=== PATIENT | female | born 1980 | race Caucasian/White ===

== ENCOUNTER 2016-07-24 00:25 | Inpatient (IN) ==
[2016-07-24] MEDS ORDERED: ASPIRIN 325 MG TABLET PO STA (01:18)
[2016-07-24] MEDS ORDERED: SODIUM CHLORIDE 0.9% 1,000 ML IV STA (01:18)
[2016-07-24] MEDS ORDERED: ONDANSETRON 4 MG/2 ML VIAL IV STA (01:18)
[2016-07-24] MEDS ORDERED: LORazepam 2 MG/1 ML VIAL IV STA (01:19)
[2016-07-24] MEDS ORDERED: HYDROmorphone 2 MG/1 ML VIAL IV STA (01:20)
--- NOTE | 2016-07-24 01:22 | EKG Report ---
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
[2016-07-24] MEDS ORDERED: ASPIRIN 325 MG TABLET ONE (01:39)
[2016-07-24] MEDS ORDERED: HYDROmorphone 2 MG/1 ML VIAL ONE (01:39)
[2016-07-24] MEDS ORDERED: ONDANSETRON 4 MG/2 ML VIAL ONE (01:39)
[2016-07-24] MEDS ORDERED: LORazepam 2 MG/1 ML VIAL ONE (01:40)
[2016-07-24 01:51] LABS: Basophils # 0.1 10*3/uL (0.0-0.2); Basophils % 0.2 % (0.0-0.8); Hematocrit 34.7 VOL% (35.7-47.0); Hemoglobin 11.8 GM/DL (12.0-16.0); Immature Granulocytes % 3.4 %; Lymphocytes # 2.6 10*3/uL (1.4-4.0); Lymphocytes % 7.1 % (21.3-54.2); Mean Corpuscular Hemoglobin 30 PG (27-34); Mean Corpuscular Volume 87.4 FL (87-102); Mean Platelet Volume 10.6 FL (9.6-12.0); Monocytes # 1.9 10*3/uL (0.11-0.8); Monocytes % 5.3 % (1.7-12.7); Platelet Count 300 10*3/uL (130-400); Red Blood Count 3.97 10*6/uL (3.8-5.5); Red Cell Distribution Width 14.4 % (9.3-17.3); White Blood Count 35.7 10*3/uL (4.5-13.71)
[2016-07-24 02:01] LABS: Albumin 3.6 G/DL (3.4-5.0); Bilirubin,Total 0.9 MG/DL (0.2-1.0); Calcium 8.5 MG/DL (8.5-10.1); Magnesium 1.6 MG/DL (1.8-2.4); Osmolality,Calculated 276.5 MOS/KG (273-304); Potassium 3.4 MMOL/L (3.5-5.1)
[2016-07-24 02:09] LABS: Apearance,Urine CLOUDY (Clear); Bacteria,Urine Moderate /HPF (Few); Bilirubin,Urine Negative (Negative); Blood, Urine Moderate mg/dL (Negative); Glucose,Urine (UA) Negative (Negative); Ketones,Urine Negative (Negative); Mucus,Urine Many /LPF (Occasional); Nitrite,Urine Negative (Negative); Protein,Urine Negative; RBC,Urine 4 /HPF (0-4); Squamous Epithelial Cell,Urine Occasional /HPF (0-10); Transitional Epi Cells,Urine Occasional /HPF (<1); Urine Color Amber (Yellow); Urine Specific Gravity 1.017 (1.001-1.035); WBC,Urine 54 /HPF (0-6)
[2016-07-24 02:13] LABS: Barbiturates Screen,Urine Negative (Negative); Benzodiazepines Screen,Urine Negative (Negative); Cannabinoid Screen,Urine Positive (Negative); Opiate Screen,Urine Positive (Negative); Phencyclidine Screen,Urine Negative (Negative)
[2016-07-24] MEDS ORDERED: LEVOFLOXACIN INJ 750 MG in PREMIX 1 EACH IV STA (02:29)
[2016-07-24] MEDS ORDERED: LEVOFLOXACIN INJ 150 ML IV ONE (02:39)
[2016-07-24 02:52] LABS: Lymphocytes 11 % (20-55); Platelet Estimate Normal; Segmented Neutrophils 83 % (50-85); Total Cells Counted 100
[2016-07-24 02:53] LABS: Anisocytosis 1+; Macrocytosis 1+
[2016-07-24] MEDS ORDERED: MAGNESIUM SULF RIDER 2 GM in PREMIX 1 EACH IV STA (03:34)
[2016-07-24] MEDS ORDERED: MAGNESIUM SULF RIDER 50 ML IV ONE (03:56)
--- NOTE | 2016-07-24 04:07 | Emergency Department Note ---
Lance Bell Brooke, am scribing for, and in the presence of, Tessie Hanson DO 01:07. Valentin Bell Catherine, DO, personally performed the services described in this documentation, ascribed by Dorie Lucas in my presence, and it is both accurate and complete . Arrival - Arrival Chief Complaint: Chest Pain Stated Complaint: chest pains ED Nursing Triage Note: patient c/o chest pain that started last night. reproducible at center of the chest. patient is tearful in triage and c/o dizziness and right arm numbness. patient has N/V. Mode of Arrival: Wheelchair Limitations: No Limitations Source: Patient, RN Notes Reviewed Time Seen by Provider: 07/24/16 00:49 - History of Present Illness HPI Narrative: Patient is a 36 year old female who presents to the ED with c/o right side chest pain that started Monday morning around 0400. Patient describes the pain as sharp. She says the pain is worsened by movement and breathing. She denies any injury that may be the cause of the pain. She also complains of her right arm being "numb" and headache. Patient says she has not taken anything for pain and that she has not moved from the couch since the pain started. Patient denies nausea but says she did vomit, twice, yesterday. Patient does not take any medications. She has no known medical problems but states she has not been to see a doctor in over five years because she does not have health insurance. Patient says she does smoke cigarettes on occasion but denies drinking alcohol and drug use. Onset (ago): day(s) (1) Consistency: constant Severity: moderate Severity scale (1-10): 7 Quality: stabbing Date of Last Menstrual Period: 07/20/16 Allergies/Adverse Reactions: Allergies Allergy/AdvReac Type Severity Reaction Status Date / Time Penicillins Allergy ANAPHYLAXIS Verified 07/24/16 00:39 Review of System - Review of System 12 point system: reviewed and no additional remarkable complaints except as stated - Review of System Constitutional: Present: chills, weakness. Absent: fever Respiratory: Present: cough. Absent: respiratory distress Cardiovascular: Present: chest pain (sharp right side) Gastrointestinal: Present: vomiting (twice yesterday). Absent: abdominal pain Musculoskeletal: Present: arm pain Skin: Absent: rash Neurological: Present: headache. Absent: weakness, numbness, paresthesias, confusion Medical,Surgical,& Family Hx - Medical History Medical History: noncontributory - Surgical History Reproductive Surgeries: Surgical HX of;: Section - Family History Family History: noncontributory - Social History Smoking Status: Never smoker Have you smoked in the last 12 months: No Frequency of Alcohol Use: None Type of Drug Use: None Marital Status: Lives With:: Spouse Functional capacity: independent ambulation Exam Vital Signs: Vital Signs Temperature 97.6 F 07/24/16 00:31 Pulse Rate 137 H 07/24/16 00:31 Respiratory Rate 16 07/24/16 00:54 Blood Pressure 114/69 07/24/16 00:31 O2 Sat by Pulse Oximetry 96 07/24/16 00:31 - General General appearance: alert, in distress, other (tearful) - Head Head exam: Present: atraumatic, normocephalic - Eye Eye exam: Present: normal appearance, PERRL, EOMI - ENT ENT exam: Present: normal exam, normal oropharynx, mucous membranes moist - Neck Neck exam: Present: normal inspection. Absent: tenderness, meningismus - Chest Chest inspection: Present: tenderness (Reproducable right upper anterior chest wall pain) - Respiratory Respiratory exam: Present: normal lung sounds bilaterally, other (decreased breath sounds at the lung bases) - Cardiovascular Cardiovascular exam: Present: regular rate, normal rhythm, tachycardia, normal heart sounds - Abdominal Exam Abdominal exam: Present: soft, normal bowel sounds. Absent: distention, tenderness, guarding, rebound - Extremities Exam Extremities exam: Present: normal inspection, full ROM, tenderness (Right shoulder tender to palpation) - Back Exam Back exam: Present: normal inspection, full ROM - Neurological Exam Neurological exam: Present: alert - Psychiatric Psychiatric exam: Present: normal affect, normal mood - Skin Skin exam: Present: warm, dry, intact, normal color Course - Reevaluation(s) Reevaluation #1: she is feeling better after the medication and we discussed the test results - she will need to be admitted fro the pneumonia Time: 04:00 - Consultations Consultation #1: I spoke to Dr. Knott from the hospitalist service and he will be admitting the patient. Time: 04:06 Results - Labs CBC & BMP: 07/24/16 00:44 07/24/16 00:44 Lab Results: I have reviewed the patients labs Labs: Laboratory Tests 07/24/16 00:44 WBC 35.7 H Hgb 11.8 L Hct 34.7 L Neut % (Auto) 84.0 H Lymph % (Auto) 7.1 L Neut # (Auto) 30.0 H Mccone # (Auto) 1.9 H Laboratory Tests 07/24/16 07/24/16 07/24/16 00:44 00:44 00:44 Potassium 3.4 L Anion Gap 16.4 H Glucose 120 H Magnesium 1.6 L AST 42 H ALT 71 H Albumin/Globulin Ratio 1.0 L Urine Urobilinogen 4.0 H Urine Leukocytes Small H Urine Opiates Screen Positive H U Amphetamine/Methamph Positive H U Cannabinoids Screen Positive H - Diagnostic Findings Procedure: CT - chest: report reviewed by me (CTA chest: 1. There are no central filling defects within the pulmonary arteries to suggest pulmonary embolus. 2. Large masslike consolidation in the right middle lobe possibly a large pneumonia. Followup to resolution is recommended.) Disposition Clinical Impression: Pneumonia Case discussed with: patient Disposition: Still a Patient Condition: Stable Time of Disposition: 04:06
[2016-07-24] MEDS ORDERED: INFLUENZA VIRUS VACCINE 0.5 ML SYRINGE IM ONE (05:00)
[2016-07-24] MEDS: SODIUM CHLORIDE 0.9% 1,000 ML IV SCH ×3 (05:19→22:16)
[2016-07-24] MEDS: HYDROmorphone 2 MG/1 ML VIAL IV PRN ×2 (05:19→10:10)
--- NOTE | 2016-07-24 07:33 | CT Report ---
CT chest PE study Indication: Shortness of breath. CT CHEST WITH CONTRAST, PE PROTOCOL DLP: 153 mGy*cm Comparison: None Technique: Axial CT images of the chest were obtained during the pulmonary arterial phase of contrast injection. Coronal reconstructions were provided. Omnipaque 350, 80 cc. Findings: Contrast bolus is suboptimal for evaluation of the segmental pulmonary arteries. No central or lobar pulmonary artery filling defects identified. Where visible, segmental pulmonary arteries are clear as well. Main pulmonary artery is normal in size. Heart size is normal. Aortic arch is intact without aneurysm or dissection. No lymphadenopathy. 70 x 44 mm soft tissue density within the medial segment right middle lobe does not and air bronchograms and is solid-appearing. The remainder of lungs are clear. Pleural spaces are clear. No bone lesions shown. Upper abdomen appears grossly unremarkable. Impression: 1. Right middle lobe density without air bronchograms. This is likely a mass and if clinically inconsistent with pneumonia, consider percutaneous biopsy. PROCEDURE INTERPRETED AT [facility] DEPARTMENT OF RADIOLOGY Final Report Signed by: Eris Cerda M.D.
--- NOTE | 2016-07-24 07:50 | XRay Report ---
XR chest 2V Indication: Chest pain. Chest 2 views: There is a 5 cm density in the right middle lobe anteriorly. Left lung is clear. Heart size and mediastinal contour normal. Impression: Right middle lobe density, either mass or pneumonia. PROCEDURE INTERPRETED AT [facility] DEPARTMENT OF RADIOLOGY Final Report Signed by: Eris Cerda M.D.
[2016-07-24] MEDS: ONDANSETRON 4 MG/2 ML VIAL IV PRN ×2 (10:17→19:42)
[2016-07-24] MEDS ORDERED: ACETAMINOPHEN 325 MG TABLET PO PRN (10:47)
--- NOTE | 2016-07-24 11:32 | Hospitalist History & Physical ---
Assessment and Plan (1) Pleurisy without effusion Status: Acute Current Visit: Yes (2) Radicular pain of right upper extremity Status: Acute Assessment and plan: The patient's right upper extremity pain is consistent with compression palsy. Alternatively she could have nerve impingement in the cervical spine. The patient will have MRI scan of cervical spine. We will treat the radiculopathy with [place]. The patient will be given Ativan as required for anxiety. Current Visit: Yes (3) Pneumonia Status: Acute Assessment and plan: The patient's pneumonia pathway would generally prescribe Levaquin and Rocephin. The patient states she has allergy to penicillin some, substitute azithromycin for Rocephin in this case. Fever and leukocytosis are consistent with pneumonia. Current Visit: Yes Qualifiers: Pneumonia type: aspiration pneumonia Aspiration pneumonia type: due to gastric secretions Laterality: right Lung location: middle lobe of lung Qualified Code(s): J69.0 - Pneumonitis due to inhalation of food and vomit History of Present Illness Chief complaint: fever, cough, pleurisy, right arm pain History of present illness: Ms. Pelayo is a 36 year old female who arrives to the hospital with fever, cough, pleuritic pain in the right chest, right arm pain and weakness. The patient's symptoms are moderate, continuous, and improving slowly with treatment. The patient states she has a history of spells of unconsciousness. She states that she's been found in the floor of [place] [employer] and was unconscious. The patient states that she's had this arm pain intermittently over the last 2 months. Home Medications Medication Instructions Recorded Confirmed Type Acetaminophen Tab [Tylenol Tab] 2 tablet PO Q4-6H PRN 07/24/16 07/24/16 History Allergies Allergy/AdvReac Type Severity Reaction Status Date / Time Penicillins Allergy ANAPHYLAXIS Verified 07/24/16 00:39 Medical,Surgical,& Family Hx - Surgical History Reproductive Surgeries: Surgical HX of;: Section, Gynecologic Surgery - Social History Smoking Status: Current every day smoker Frequency of Alcohol Use: None Type of Drug Use: None Marital Status: Lives With:: Children Functional capacity: independent ambulation 12 point system: reviewed and no additional remarkable complaints except as stated Exam - Constitutional Vitals: Period Temp Pulse Resp BP Sys/Graham Pulse Ox Last 24 Hr 98.0 F-98.5 F 108-127 16-16 96-108/49-54 92-98 Exam: Constitutional System: Mild distress, hypervigilance, anxious affect. No tremulousness. Head: Normocephalic, atraumatic. Ears, Nose and Throat System: No evidence of Otitis or Mastoiditis. No epistaxis or discharge Eyes System: Pupils equal, round, and reactive. Extraocular muscles intact. Neck: Supple, without adenopathy, No jugular venous distention. No thyromegaly , neck mass, or prior surgery apparent. Respiratory System: Chest generally clear to auscultation. A few rhonchi right anterior chest with demonstrated pleurisy on deep breathing Cardiovascular System: Heart with regular tachycardic rate and rhythm. No murmur. GI System: Abdomen soft, nontender. Normoactive bowel sounds present. Musculoskeletal System: limbs with no pedal edema. Full distal pulses. Mild weakness of right upper extremity and painful motion to passive and positive range of motion Neurological System: No discernable sensory deficit. No aphasia Psychiatric System: Conversation is rational Results - Labs CBC & BMP: 07/24/16 00:44 07/24/16 00:44 Lab Results: I have reviewed the past 24 hour labs - Diagnostic Findings Procedure: CT - chest: report reviewed by me (right middle lobe rounded infiltrate)
[2016-07-24] MEDS: AZITHROMYCIN INJ 500 MG in SODIUM CHLORIDE 0.9% 250 ML IV SCH (11:43)
[2016-07-24] MEDS: LORazepam 1 MG TABLET PO PRN ×2 (13:51→19:32)
[2016-07-25] MEDS: LORazepam 1 MG TABLET PO PRN ×3 (02:54→20:42)
[2016-07-25 05:16] LABS: Basophils % 0.1 % (0.0-0.8); Eosinophils # 0.1 10*3/uL (0.0-0.87); Eosinophils % 0.6 % (0.00-10.9); Hematocrit 27.2 VOL% (35.7-47.0); Hemoglobin 8.9 GM/DL (12.0-16.0); Immature Granulocytes % 0.6 %; Lymphocytes # 2.8 10*3/uL (1.4-4.0); Lymphocytes % 17.6 % (21.3-54.2); Mean Corpuscular HGB Conc 32.7 GM/DL (32-36); Mean Corpuscular Hemoglobin 30 PG (27-34); Mean Corpuscular Volume 91.6 FL (87-102); Mean Platelet Volume 10.3 FL (9.6-12.0); Monocytes % 6.5 % (1.7-12.7); Neutrophils % 74.6 % (38.7-73.9); Platelet Count 194 10*3/uL (130-400); Red Blood Count 2.97 10*6/uL (3.8-5.5); Red Cell Distribution Width 14.7 % (9.3-17.3); White Blood Count 16.1 10*3/uL (4.5-13.71)
[2016-07-25 05:25] LABS: Calcium 7.7 MG/DL (8.5-10.1); Osmolality,Calculated 281.8 MOS/KG (273-304); Potassium 3.4 MMOL/L (3.5-5.1)
[2016-07-25] MEDS: SODIUM CHLORIDE 0.9% 1,000 ML IV SCH ×3 (05:53→20:34)
[2016-07-25] MEDS: POTASSIUM CHLORIDE 20 MEQ TABLET PO SCH ×3 (07:05→16:27)
[2016-07-25] MEDS: AZITHROMYCIN INJ 500 MG in SODIUM CHLORIDE 0.9% 250 ML IV SCH (10:24)
--- NOTE | 2016-07-25 11:18 | Hospitalist Progress Note ---
Assessment and Plan (1) Pleurisy without effusion Status: Acute Current Visit: Yes (2) Radicular pain of right upper extremity Status: Acute Assessment and plan: The patient's right upper extremity pain is consistent with compression palsy. Alternatively she could have nerve impingement in the cervical spine. The patient will have MRI scan of cervical spine. We will treat the radiculopathy with [place]. The patient will be given Ativan as required for anxiety. Current Visit: Yes (3) Pneumonia Status: Acute Assessment and plan: The patient's aspiration pneumonia is improving on Zithromax and Levaquin. The patient has cough which we will treat with Robitussin. Current Visit: Yes Qualifiers: Pneumonia type: aspiration pneumonia Aspiration pneumonia type: due to gastric secretions Laterality: right Lung location: middle lobe of lung Qualified Code(s): J69.0 - Pneumonitis due to inhalation of food and vomit Hospitalist: Subjective Interval history: The patient was admitted to the hospital with pleurisy of the right chest and leukocytosis. She was found to have a round infiltrate in the right lobe consistent with aspiration. She has right arm pain consistent with Monday night palsy. The patient had positive drug screen. The patient has less shortness of breath today. She has continued complaints of pleurisy. The patient has less numbness of the right arm and right arm weakness is getting better. She still has radicular pain in the right arm down to the elbow. Exam - Constitutional Vitals: Period Temp Pulse Resp BP Sys/Graham Pulse Ox Last 24 Hr 97.3 F-100.1 F 88-134 16-20 87-142/48-67 94-96 Exam: Constitutional System: Mild distress, hypervigilance, anxious affect. No tremulousness. Head: Normocephalic, atraumatic. Ears, Nose and Throat System: No evidence of Otitis or Mastoiditis. No epistaxis or discharge Eyes System: Pupils equal, round, and reactive. Extraocular muscles intact. Neck: Supple, without adenopathy, No jugular venous distention. No thyromegaly , neck mass, or prior surgery apparent. Respiratory System: Chest generally clear to auscultation. A few rhonchi right anterior chest with demonstrated pleurisy on deep breathing Cardiovascular System: Heart with regular tachycardic rate and rhythm. No murmur. GI System: Abdomen soft, nontender. Normoactive bowel sounds present. Musculoskeletal System: limbs with no pedal edema. Full distal pulses. Mild weakness of right upper extremity and painful motion to passive and positive range of motion Neurological System: No discernable sensory deficit. No aphasia Psychiatric System: Conversation is rational Results - Labs CBC & BMP: 07/25/16 Unknown 07/25/16 04:18 Lab Results: I have reviewed the past 24 hour labs
--- NOTE | 2016-07-25 15:04 | Magnetic Resonance Report ---
Exam: MR thoracic spine wo/w con Date: 07/25/2016 11:28 AM Comparison: CT chest, 07/24/2016 Indication: Right arm pain and weakness, neck pain, pain is more prominent with patient lying on back Technique: Multiple acquisitions were obtained including sagittal T2, STIR, and T1 scans before and after the injection of 12 cc of Dotarem with axial T2 and T1 scans without and with contrast. Scans were obtained on a 1.5 Arlin magnet. Findings: Motion artifact. Progressive parenchymal findings in the lungs with bilateral pleural effusions which measures 40 mm on the right and 9 mm on the left at the level of the kush. The alignment of the thoracic spine is unremarkable with no acute fracture. No definite spinal cord pathology is identified. No significant disc protrusion, spinal stenosis, or abnormal enhancement in the thoracic spine location. Impression: Motion artifact. No acute thoracic spine pathology identified. Progressive parenchymal findings in the lungs with moderate right and small left pleural effusions. These findings could be related to bilateral pneumonia but it is difficult to exclude other pathology and followup is recommended as discussed with Dr. Knott at 2:50 PM on 07/25/2016. PROCEDURE INTERPRETED AT [facility] DEPARTMENT OF RADIOLOGY Final Report Signed by: Dr. Fiana Martin
--- NOTE | 2016-07-25 15:05 | Magnetic Resonance Report ---
MRI of the cervical spine without and with contrast. Technique: Sagittal T2, sagittal T2 fat-sat, sagittal T1, axial T1, axial T2 and axial gradient echo sequences of the cervical spine were performed without contrast. Sagittal and axial T1 scans were obtained following the injection of 12 cc of Dotarem. Clinical history: Neck pain with right shoulder radiculopathy, numbness in right arm Comparison: None. Findings: Scans are degraded by motion artifact The vertebral bodies maintain a normal height and alignment. Marrow edema in involving the opposing vertebral endplates at C6-C7 with enhancement with associated minimal enhancement posterior to the vertebral bodies. No significant fluid signal in this location on the T2 scans. No enhancement of the disc. Disc degeneration. The cord is normal in signal and caliber. The craniocervical junction is unremarkable. Right pleural effusion. C2-3: No disc protrusion, spinal stenosis, or foraminal stenosis. C3-4: No disc protrusion, spinal stenosis, or foraminal stenosis. C4-5: No disc protrusion, spinal stenosis, or foraminal stenosis. C5-6: Osteophyte/disc complex which compresses the thecal sac and minimally flattens the left side of the spinal cord. Associated spinal stenosis with an AP diameter of 9.53 mm with minimal right and moderate left foraminal stenosis. It is called to exclude disc extrusion with free fragments extending behind C6 vertebra. C6-7: Osteophyte/disc complex which compresses the thecal sac. Associated spinal stenosis with an AP diameter of 9.24 mm with minimal right foraminal stenosis. C7-T1: No disc protrusion or spinal stenosis with minimal left foraminal stenosis. Impression: Motion artifact. Marrow edema involving opposing vertebral endplates at C6-C7 with associated enhancement which may be related to the degenerative changes but it is difficult to exclude early infectious process. Multilevel DDD as above noted. Right pleural effusion. Short-term followup MRI may be helpful for further evaluation if symptoms progress as discussed with Dr. Knott at 2:50 PM on 07/25/2016. Critical test results PROCEDURE INTERPRETED AT [facility] DEPARTMENT OF RADIOLOGY Final Report Signed by: Dr. Faina Martin
[2016-07-25] MEDS ORDERED: POTASSIUM CHLORIDE 20 MEQ TABLET PO ONE (16:30)
--- NOTE | 2016-07-25 18:45 | Pulmonology Consult Note ---
History of Present Illness Chief complaint: Chest mass. Drug abuse. History of present illness: Ms. Pelayo is a 36 year old female whom I been asked to see in pulmonary consultation. This patient was admitted to the hospital 07/24/2016 right upper extremity pain. On chest x-ray it appeared that she had a right middle lung pneumonia. She has been started on protocol antibiotics. She is allergic to penicillin. Patient told the doctors that she had a history of spells of being unconscious. She went on to say that she been found on the floor of the [employer] and was unconscious. She has had arm pain intermittently for 2 months. I asked the patient if she smoked and she said no. Monday was her last cigarette. I asked her if she used alcohol and she said that she quit drinking 2 years ago I asked her twice that she used drugs and she said no. Her nurse was present. Ricky Godwin nurse practitioner was present The remainder the review of systems is noncontributory Allergies penicillin Home medicines. Tylenol Social history. Patient smokes on a daily basis she stated she does not use drugs and she does not use alcohol. Note that she has a positive drug screen. . has a different last name. Past history. Denies known medical problems. Family history. Not available Chest x-ray and CT scan of the chest of been reviewed. Patient has some hyperinflation. She has a mass-effect in the right middle lung. This is solid with an occasional small air bronchogram. It abuts the pleura anteriorly. Toxicology. Drug screen is positive for opiates and amphetamines and THC Lab. Urinary tract infection. Admit white blood cell count was 35,700. This is dropped to 16,100. There is a left shift. Admit H&H 11.8/34.7 is dropped to 8.9/27.2. Platelets are 194,000. Potassium is 3.4. Sodium is 144. Creatinine is 0.50. There is a mild elevation of transaminases. Magnesium is low at 1.6. Physical exam. Vital signs. See below Psychiatric. Awake and alert. Would not open her eyes and was reluctant to answer my questions other than those mentioned above Chest. Patient would not take a deep excursion. Breath sounds heard were clear. Heart. Regular. Extremities. No edema. The remainder the physical exam was noncontributory. Impression. 1. Dense right middle lung infiltrate versus mass. 2. Significant history of tobacco abuse 3. Drug abuse based on urine toxicology 4. C6-C7 marrow edema. See MRI report. 5. Hypokalemia hypomagnesia anemia. 6. Acute urinary tract infection. Gram-negative maria m. ID and sensitivities pending. 7. Anemia 8. Leukocytosis Plan. 1. Agree with protocol antibiotics 2. Follow-up x-ray. 3. If this lesion does not resolve consider transthoracic biopsy. 4. Deep venous thrombophlebitis prevention prophylaxis 5. Sputum for Gram stain culture and sensitivity 6. Sputum for cytology daily times Home Medications Medication Instructions Recorded Confirmed Type Acetaminophen Tab [Tylenol Tab] 2 tablet PO Q4-6H PRN 07/24/16 07/24/16 History Allergies Allergy/AdvReac Type Severity Reaction Status Date / Time Penicillins Allergy ANAPHYLAXIS Verified 07/24/16 00:39 Exam (Pulmonay) H&P - Constitutional Vitals: Period Temp Pulse Resp BP Sys/Graham Pulse Ox Last 24 Hr 97.8 F-100.1 F 96-118 16-20 87-103/48-53 94-96 Medical,Surgical,& Family Hx - Surgical History Reproductive Surgeries: Surgical HX of;: Section, Gynecologic Surgery - Social History Smoking Status: Current every day smoker Frequency of Alcohol Use: None Type of Drug Use: None Results - Labs CBC & BMP: 07/25/16 Unknown 07/25/16 04:18
[2016-07-26] MEDS: SODIUM CHLORIDE 0.9% 1,000 ML IV SCH (02:18)
[2016-07-26 04:36] LABS: Calcium 7.8 MG/DL (8.5-10.1); Magnesium 1.9 MG/DL (1.8-2.4); Osmolality,Calculated 285.6 MOS/KG (273-304); Potassium 4.2 MMOL/L (3.5-5.1)
[2016-07-26] MEDS: LORazepam 1 MG TABLET PO PRN ×2 (06:09→12:09)
--- NOTE | 2016-07-26 07:54 | XRay Report ---
Exam: Chest 2 views Date: July 26, 2016 at 6:43 AM Comparison: Chest [address] chest July 24, 2016 Reason: Right middle lobe mass versus infiltrate Findings: The cardiac silhouette is normal in size. There are opacities within both lower lung zones, right greater than left. This is concerning for atelectasis, pneumonia and likely pulmonary edema. No pneumothorax is identified, but there is mild left pleural fluid and mild to moderate right pleural fluid. The osseous structures appear stable. Impression: There is increased opacification at both lower lung zones and interval development of bilateral pleural fluid. Followup is recommended to confirm resolution. PROCEDURE INTERPRETED AT [facility] DEPARTMENT OF RADIOLOGY Final Report Signed by: Dr. Hilton Chowdhury
--- NOTE | 2016-07-26 09:49 | Hospitalist Progress Note ---
Assessment and Plan (1) Drug abuse Status: Acute Current Visit: Yes (2) Pneumonia Status: Acute Assessment and plan: Her chest x-ray now shows bilateral lower infiltrates with some pleural effusion but she is responding as her white blood cell count is 16,000. This time we'll continue current antibiotics. Current Visit: Yes Qualifiers: Pneumonia type: aspiration pneumonia Aspiration pneumonia type: due to gastric secretions Laterality: right Lung location: middle lobe of lung Qualified Code(s): J69.0 - Pneumonitis due to inhalation of food and vomit (3) Radicular pain of right upper extremity Status: Acute Current Visit: Yes Hospitalist: Subjective Interval history: 6-year-old white female complaining of shortness of breath was found to have this right middle lobe infiltrate versus mass. The time she also had a elevated white blood cell count of 36,000. This morning she is lying in bed crying states that she does not feel well. She also complains of headaches state that the medicine that he given her a cocktail had been discontinued. I did review the MR did not wrist see a cocktail in which patient states she was given for headache. She did test positive with her urine drug screen for both marijuana and methamphetamines. Pulmonology is seen in consultation and agreed with current medical management for underlying pneumonia. I did review her chest x-ray and it appears that this is likely pneumonia versus a mass. She is also responding she carried antibiotic regimen as her white count is down to 16, 000 this morning. Exam - Constitutional Vitals: Period Temp Pulse Resp BP Sys/Graham Pulse Ox Last 24 Hr 97.1 F-99.3 F 91-116 18-20 99-115/51-91 90-96 General appearance: no acute distress - Head Head exam: Present: normocephalic, atraumatic - Eye Eye exam: Present: EOMI Pupils: Present: LANE - Respiratory Respiratory exam: Present: clear to auscultation bilaterally - Cardiovascular Cardiovascular exam: Present: regular rate and rhythm - GI/Abdominal GI/Abdominal exam: Present: normal bowel sounds, soft - Extremities Exam Extremities exam: Present: full ROM - Neurological Exam Neurological exam: Present: alert, oriented X3, CN II-XII intact - Psychiatric Psychiatric exam: Present: normal affect, normal mood - Skin Skin exam: Present: warm, intact Results - Labs CBC & BMP: 07/25/16 Unknown 07/26/16 03:01 - Diagnostic Findings Procedure: Chest x-ray: report reviewed by me (recent opacification of both lower lung lópez with bilateral pleural effusion)
--- NOTE | 2016-07-26 11:37 | Pulmonology Progress Note ---
Pulmonary - PN: Subj Interval history: This is a 36-year-old white female. I saw in pulmonary consultation on 2016. My impressions were 1. Dense right middle lung infiltrate versus mass. 2. Significant history of tobacco abuse 3. Drug abuse based on urine toxicology 4. C6-C7 marrow edema. See MRI report. 5. Hypokalemia hypomagnesia anemia. 6. Acute urinary tract infection. Gram-negative maria m. ID and sensitivities pending. 7. Anemia 8. Leukocytosis. 07/26/2016. Patient was seen along with 2 ladies. I think 1 of them was her mother. She was sitting up in a chair talking on the telephone. 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 She was on the phone with him and I examined her briefly. This morning at 7 AM when the nurses went in to help her with her shower and other preparations she had left the floor with her IV pole. See nurse's note for additional details. I have reordered a urine for toxicology. Today's chest x-ray shows a residual infiltrate or mass in the right middle lung. Patient is now but developed bilateral pleural effusions. I have ordered an echocardiogram and a BNP we have to consider the possibility of cardiac dysfunction based on her positive drug screen. This patient still not a forthcoming historian. She was seen along with her nurse Clarissa and along with Ricky Godwin nurse practitioner. O2 sats are only running 90% on room air. Will check Doppler venograms. Urine cultures are growing E. coli. Sensitive to the present antibiotics per Physical exam. Psychiatric awake and alert. Talking on the telephone., Forthcoming historian. Neurologic. Cranial nerves and long track motor function is intact. Face and eyes appear to be normal. Neck. Range of motion appears to have improved. Chest. Surprisingly clear Heart. No definite gallop Lower extremities. No edema. No evidence of deep venous thrombophlebitis Abdomen. Nondistended. The remainder of the exam was noncontributory. Plan. 1. Agree with protocol antibiotics 2. Follow-up x-ray. 3. If this lesion does not resolve consider transthoracic biopsy. 4. Deep venous thrombophlebitis prevention prophylaxis 5. Sputum for Gram stain culture and sensitivity 6. Sputum for cytology daily times 7. 07/26/2016. See my note above for the same day. Get Doppler venograms of the lower extremities, echocardiogram, BNP. Also get follow-up chest x-ray and lab on 07/27/2016. Repeat urine toxicology Exam (Progress Note) - Constitutional Vitals: Period Temp Pulse Resp BP Sys/Graham Pulse Ox Last 24 Hr 97.1 F-99.3 F 91-116 18-20 99-115/51-91 90-96 Results - Labs CBC & BMP: 07/25/16 Unknown 07/26/16 03:01
[2016-07-26] MEDS: AZITHROMYCIN INJ 500 MG in SODIUM CHLORIDE 0.9% 250 ML IV SCH (12:16)
[2016-07-26] MEDS: ONDANSETRON 4 MG/2 ML VIAL IV PRN (13:45)
--- NOTE | 2016-07-26 14:22 | Ultrasound Report ---
Venous Doppler ultrasound bilateral lower extremities Indication: Shortness of breath, pain Comparison: None available Findings: No evidence of echogenic, noncompressible thrombus seen in the visualized veins of the extremities. Color Doppler venous waveform pattern is within normal limits. Impression: No evidence of deep venous thrombosis. Ultrasound images stored and captured. PROCEDURE INTERPRETED AT [facility] DEPARTMENT OF RADIOLOGY Final Report Signed by: Dr. Collin Tovar
--- NOTE | 2016-07-26 14:57 | ECHO Report ---
Carla Pelayo Exam Date: 07/26/2016 13:43 Referring Physician: Technologist: Sandra MOURA Age: 36 Ht (in): Wt (lb): Gender: F Exam Location: [facility] Echo Indications: pneumonia, pleurisy without effusion, Radicular pain of Rt. upper extremities BP: / HR: Rhythm: Sinus Technical Quality: good IMPRESSIONS Normal left ventricular size and systolic function, left ventricular ejection fraction is estimated at 55 %. There is no regional wall motion abnormality. Diastolic parameters are equivocal. Mild mitral valve regurgitation. Tricuspid regurgitation velocities suggest a RVSP of 25.0 mmHg + RAP. No pericardial effusion. Pleural effusion is present on the left. MEASUREMENTS (Male / Female) Normal Values 2D ECHO LV Diastolic Diameter PLAX 3.7 cm 4.2 - 5.9 / 3.9 - 5.3 cm LV Systolic Diameter PLAX 2.8 cm LV Fractional Shortening PLAX 24.6 % IVS Diastolic Thickness 0.9 cm 0.6 - 1.0 / 0.6 - 0.9 cm LVPW Diastolic Thickness 0.9 cm 0.6 - 1.0 / 0.6 - 0.9 cm RV Internal Dim ED PLAX 2.8 cm Aortic Root Diameter 2.2 cm LA Systolic Diameter LX 2.5 cm 3.0 - 4.0 / 2.7 - 3.8 cm DOPPLER TR Peak Velocity 250.0 cm/s TR Peak Gradient 25.0 mmHg FINDINGS Left Ventricle Normal left ventricular size and systolic function, left ventricular ejection fraction is estimated at 55 %. There is no regional wall motion abnormality. Diastolic parameters are equivocal. Right Ventricle The right ventricle is normal in size and function. Right Atrium The right atrium is normal in size. Left Atrium The left atrium is normal in size. Mitral Valve Morphologically normal mitral valve without significant stenosis or prolapse. Mild mitral valve regurgitation. Aortic Valve Morphologically normal aortic valve without significant sclerosis or stenosis. Tricuspid Valve Morphologically normal tricuspid valve without significant stenosis.[id number]-gaydjtla tricuspid valve regurgitation. Tricuspid regurgitation velocities suggest a RVSP of 25.0 mmHg + RAP. Pulmonic Valve Morphologically normal pulmonic valve without significant stenosis. There is no pulmonic regurgitation. Pericardium No pericardial effusion. + Pleural effusion. Aorta Normal size aortic root and proximal ascending aorta. Alicia Castañeda (Electronically Signed) Final Date: 26 July 2016 14:56
[2016-07-26] MEDS ORDERED: ZALEPLON 5 MG CAPSULE PO PRN (18:18)
[2016-07-26] MEDS ORDERED: KETOROLAC 30 MG/1 ML VIAL IV ONE (18:18)
[2016-07-26] MEDS: traMADol 50 MG TABLET PO PRN (23:35)
[2016-07-27 05:38] LABS: Basophils % 0.1 % (0.0-0.8); Eosinophils # 0.2 10*3/uL (0.0-0.87); Eosinophils % 2.7 % (0.00-10.9); Hematocrit 29.1 VOL% (35.7-47.0); Hemoglobin 9.4 GM/DL (12.0-16.0); Immature Granulocytes % 0.3 %; Immature Granulocytes Absolute 0.02 #; Lymphocytes # 2.1 10*3/uL (1.4-4.0); Lymphocytes % 31.5 % (21.3-54.2); Mean Corpuscular HGB Conc 32.3 GM/DL (32-36); Mean Corpuscular Hemoglobin 29 PG (27-34); Mean Corpuscular Volume 90.1 FL (87-102); Mean Platelet Volume 9.7 FL (9.6-12.0); Monocytes # 0.6 10*3/uL (0.11-0.8); Monocytes % 8.1 % (1.7-12.7); Neutrophils # 3.9 10*3/uL (1.4-7.4); Neutrophils % 57.3 % (38.7-73.9); Platelet Count 260 T/CUMM (130-400); Red Blood Count 3.23 MC/CUMM (3.8-5.5); Red Cell Distribution Width 14.6 % (9.3-17.3); White Blood Count 6.8 T/CUMM (4-12)
--- NOTE | 2016-07-27 07:03 | XRay Report ---
Exam: Chest 2 views Date: July 27, 2016 at 6:54 AM Comparison: Chest 2 views July 26, 2016 Reason: Right middle lobe pneumonia versus mass followup Findings: The cardiac silhouette is normal in size. There are opacities within both lower lung zones, right greater than left. This is concerning for atelectasis, pneumonia and possibly mild pulmonary edema. No pneumothorax is identified, but there is mild left pleural fluid and mild to moderate right pleural fluid. The osseous structures appear stable. Impression: There has been no significant change. Followup is again recommended to confirm resolution since exclusion of an underlying pulmonary lesion is difficult. PROCEDURE INTERPRETED AT [facility] DEPARTMENT OF RADIOLOGY Final Report Signed by: Dr. Hilton Chowdhury
[2016-07-27] MEDS: traMADol 50 MG TABLET PO PRN ×2 (08:36→17:07)
--- NOTE | 2016-07-27 09:49 | Hospitalist Progress Note ---
Assessment and Plan (1) Drug abuse Status: Acute Current Visit: Yes (2) Pneumonia Status: Acute Assessment and plan: Her chest x-ray now shows bilateral lower infiltrates with some pleural effusion but she is responding as her white blood cell count is 16,000. This time we'll continue current antibiotics. 07/27/16: continue with current antibiotics as her WBC is normal, still cannot completely exclude underlying mass Current Visit: Yes Qualifiers: Pneumonia type: aspiration pneumonia Aspiration pneumonia type: due to gastric secretions Laterality: right Lung location: middle lobe of lung Qualified Code(s): J69.0 - Pneumonitis due to inhalation of food and vomit (3) Radicular pain of right upper extremity Status: Acute Current Visit: Yes Hospitalist: Subjective Interval history: Patient still complaining of not feeling well. There were no overnight events. She still is hypoxic L nasal cannula. Today her white count is normalized. Exam - Constitutional Vitals: Period Temp Pulse Resp BP Sys/Graham Pulse Ox Last 24 Hr 97.1 F-99.2 F 76-98 18-20 96-115/56-83 90-98 General appearance: no acute distress - Head Head exam: Present: normocephalic, atraumatic - Eye Eye exam: Present: EOMI Pupils: Present: LANE - Respiratory Respiratory exam: Present: other (bibasilar crackles) - Cardiovascular Cardiovascular exam: Present: regular rate and rhythm - GI/Abdominal GI/Abdominal exam: Present: normal bowel sounds, soft - Extremities Exam Extremities exam: Present: full ROM - Neurological Exam Neurological exam: Present: alert, oriented X3, CN II-XII intact - Psychiatric Psychiatric exam: Present: flat affect - Skin Skin exam: Present: warm, intact Results - Labs CBC & BMP: 07/27/16 05:20 07/26/16 03:01
[2016-07-27] MEDS: AZITHROMYCIN INJ 500 MG in SODIUM CHLORIDE 0.9% 250 ML IV SCH (10:24)
--- NOTE | 2016-07-27 10:25 | Pulmonology Progress Note ---
Pulmonary - PN: Subj Interval history: This is a 36-year-old white female. I saw in pulmonary consultation on 2016. My impressions were 1. Dense right middle lung infiltrate versus mass. 2. Significant history of tobacco abuse 3. Drug abuse based on urine toxicology 4. C6-C7 marrow edema. See MRI report. 5. Hypokalemia hypomagnesia anemia. 6. Acute urinary tract infection. Gram-negative maria m. ID and sensitivities pending. 7. Anemia 8. Leukocytosis. 07/26/2016. Patient was seen along with 2 ladies. I think 1 of them was her mother. She was sitting up in a chair talking on the telephone. 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 She was on the phone with him and I examined her briefly. This morning at 7 AM when the nurses went in to help her with her shower and other preparations she had left the floor with her IV pole. See nurse's note for additional details. I have reordered a urine for toxicology. Today's chest x-ray shows a residual infiltrate or mass in the right middle lung. Patient is now but developed bilateral pleural effusions. I have ordered an echocardiogram and a BNP we have to consider the possibility of cardiac dysfunction based on her positive drug screen. This patient still not a forthcoming historian. She was seen along with her nurse Clarissa and along with Ricky Godwin nurse practitioner. O2 sats are only running 90% on room air. Will check Doppler venograms. Urine cultures are growing E. coli. Sensitive to the present antibiotics per 07/27/2016 patient's chest x-ray on 07/26/2016 showed bilateral pleural effusions. We did Doppler venograms of the lower extremities. These were negative for deep venous thrombophlebitis. Also did an echocardiogram showed mild left ventricular hypertrophy and ejection fraction 60%. Today's x-ray shows a tiny left pleural effusion. Patient has a moderate sized right pleural effusion. She has a infiltrate in the right middle lung and this should be a parapneumonic effusion. Her temperature is under good control. White blood cell count is only 6800 with 57 segs 31 lymphs and 8 monos. At the present time there is no evidence of a empyema so this area does not need to be drained. We need to continue her antibiotics. The right middle lung abnormality does not resolve then we have to consider the possibility that we could have a malignancy and if at that time a pleural effusion persist we should do a thoracentesis with studies that would include cytology. At the present time I am recommending that we leave this alone unless something changes. Patient's natruretic peptide is been done twice. We have values of 146 and values of 104. These are normal. Patient is anemic with an H&H of 9.4/ 29.1 red blood cell indices and a red blood cell distribution width are normal. Platelets are normal at 260,000. A follow-up drug screen is pending. Urine has grown E. coli. Patient has not given us a sputum. She has a collection apparatus in her room and I have asked her to give us a deep sputum specimen. Physical exam. Psychiatric awake and alert. The patient is not a forthcoming historian. Neurologic. Cranial nerves and long track motor function is intact. Face and eyes appear to be normal. Neck. Range of motion appears to have improved. Chest. Surprisingly clear Heart. No definite gallop Lower extremities. No edema. No evidence of deep venous thrombophlebitis Abdomen. Nondistended. The remainder of the exam was noncontributory. Plan. 1. Agree with protocol antibiotics 2. Follow-up x-ray. 3. If this lesion does not resolve consider transthoracic biopsy. 4. Deep venous thrombophlebitis prevention prophylaxis 5. Sputum for Gram stain culture and sensitivity 6. Sputum for cytology daily times 7. 07/26/2016. See my note above for the same day. Get Doppler venograms of the lower extremities, echocardiogram, BNP. Also get follow-up chest x-ray and lab on 07/27/2016. Repeat urine toxicology 8. 07/27/2016. Continue present antibiotics. Repeat chest x-ray in the morning. Case has been discussed with Dr. Darling and we are coordinating care. Exam (Progress Note) - Constitutional Vitals: Period Temp Pulse Resp BP Sys/Graham Pulse Ox Last 24 Hr 97.1 F-99.2 F 76-98 18-20 96-115/56-83 90-98 Results - Labs CBC & BMP: 07/27/16 05:20 07/26/16 03:01
[2016-07-27 11:10] LABS: Apearance,Urine CLEAR (Clear); Bilirubin,Urine Negative (Negative); Blood, Urine Small mg/dL (Negative); Glucose,Urine (UA) Negative (Negative); Ketones,Urine Negative (Negative); Mucus,Urine Occasional /LPF (Occasional); Nitrite,Urine Negative (Negative); Protein,Urine Negative; RBC,Urine 1 /HPF (0-4); Squamous Epithelial Cell,Urine Occasional /HPF (0-10); Urine Color Yellow (Yellow); Urine Specific Gravity 1.011 (1.001-1.035); Urine Urobilinogen < 2.0 EU/DL (0.2-1.0); WBC,Urine 2 /HPF (0-6)
[2016-07-27] MEDS: LORazepam 1 MG TABLET PO PRN (21:29)
[2016-07-28 04:07] LABS: Basophils % 0.3 % (0.0-0.8); Eosinophils # 0.2 10*3/uL (0.0-0.87); Eosinophils % 2.1 % (0.00-10.9); Hematocrit 29.9 VOL% (35.7-47.0); Hemoglobin 9.9 GM/DL (12.0-16.0); Immature Granulocytes % 0.3 %; Immature Granulocytes Absolute 0.02 #; Lymphocytes # 2.5 10*3/uL (1.4-4.0); Lymphocytes % 31.8 % (21.3-54.2); Mean Corpuscular HGB Conc 33.1 GM/DL (32-36); Mean Corpuscular Hemoglobin 29 PG (27-34); Mean Corpuscular Volume 88.7 FL (87-102); Mean Platelet Volume 9.7 FL (9.6-12.0); Monocytes # 0.7 10*3/uL (0.11-0.8); Monocytes % 8.5 % (1.7-12.7); Neutrophils # 4.5 10*3/uL (1.4-7.4); Platelet Count 295 T/CUMM (130-400); Red Blood Count 3.37 MC/CUMM (3.8-5.5); Red Cell Distribution Width 14.7 % (9.3-17.3); White Blood Count 7.9 T/CUMM (4-12)
--- NOTE | 2016-07-28 08:00 | XRay Report ---
XR chest 2V Date: 07/28/2016 4:00 AM History: Pneumonia Comparison: 07/27/2016 Technique: PA and lateral chest Findings: The heart is normal in size. Minimal reduction in the pleural and parenchymal findings at the lung bases. Stable mediastinum and osseous structures. Impression: Minimally improved bilateral pneumonia with very minimal decrease in the size of the pleural effusions. PROCEDURE INTERPRETED AT [facility] DEPARTMENT OF RADIOLOGY Final Report Signed by: Dr. Faina EDMONDS
[2016-07-28] MEDS: traMADol 50 MG TABLET PO PRN (08:36)
--- NOTE | 2016-07-28 09:17 | Discharge Summary ---
<Agnieszka Allison - Last Filed: 07/28/16 09:12> Hospital Course - Hospital Course Hospital Course: Ms. Pelayo was admitted on 07/24 with pleurisy, radicular pain RUE c/w compression palsy and aspiration pneumonia. It was felt that she aspirated. MRI showed foraminal stenosis on the right hand side at C4, C5 which could be DDD or associated with infection. Dr. De Los Santos with pulmonary was consulted for chest mass. Her drug screen was positive for opiates, amphetamines and THC. She did have a UTI and WBC with left shift. Her urine did grow E coli and she was not able to provide us with a deep sputum culture. She was treated with azithromycin. She has much improved and labs and vitals are stable and she is ready for discharge home today on appropriate medications and follow up. - Time spent with patient Time with patient DS: Greater than 30 minutes (due to plan, doc and med rec.) Diagnosis - Discharge Diagnosis (1) Aspiration pneumonia Status: Acute (2) Drug abuse Status: Acute (3) Pleurisy without effusion Status: Acute (4) Radicular pain of right upper extremity Status: Acute Discharge Plan - Discharge Data Disposition: Disch To Home/Self Care - Discharge Medications New Levofloxacin Tab [Levaquin Tab] 750 mg PO DAILY #7 tablet guaiFENesin/DM LIQUID [Robitussin Dm] 10 ml PO Q2H PRN #120 mls PRN Reason: Cough Continue Acetaminophen Tab [Tylenol Tab] 2 tablet PO Q4-6H PRN PRN Reason: Pain - Follow Up or Referral - Forms/Instructions Exam - Constitutional Vitals: Period Temp Pulse Resp BP Sys/Graham Pulse Ox Last 24 Hr 96.9 F-99.7 F 75-96 16-20 96-120/58-67 90-95 Discharge Results Procedures and tests throughout hospitalization: Pending Orders 07/25/16 18:54 Sputum Culture and Gram Stain Routine 07/26/16 07:40 Drug Screen Prescrip/OTC Urine Stat Labs on day of discharge: Labs from last 24 hours 07/28/16 07/27/16 03:35 07:40 WBC 7.9 RBC 3.37 L Hgb 9.9 L Hct 29.9 L MCV 88.7 MCH 29 MCHC 33.1 RDW 14.7 Plt Count 295 MPV 9.7 Neut % (Auto) 57.0 Lymph % (Auto) 31.8 [place]ah % (Auto) 8.5 Eos % (Auto) 2.1 Baso % (Auto) 0.3 Neut # (Auto) 4.5 Lymph # (Auto) 2.5 [place]ah # (Auto) 0.7 Eos # (Auto) 0.2 Baso # (Auto) 0.0 Immature Gran % 0.3 Nucleated RBC % 0.0 Immature Gran # 0.02 Nucleated RBCs # 0.00 Urine Color Yellow Urine Appearance Clear Urine pH 8.0 Ur Specific [place] 1.011 Urine Protein Negative Urine Glucose (UA) Negative Urine Ketones Negative Urine Blood Small Urine Nitrate Negative Urine Bilirubin Negative Urine Urobilinogen < 2.0 H Urine Leukocytes Negative Urine RBC 1 Urine WBC 2 Ur Squamous Epith Cells Occasional Urine Mucus Occasional Ur Culture Indicated? Not indicated DS: Provider Date of admission: 07/24/16 04:07 Primary care physician: . No PCP Attending physician on admission: Freddy Knott MD Consults: 07/25/16 15:00 Consult to Physician [CONS] Routine Comment: RML pna with pleural effusion Consulting Provider: Alli De Los Santos Person Notified: TANIYA Date Notified: 07/25/16 Time Notified: 16:06 Discharging clinician: Agnieszka Allison NP Expected date of discharge: 07/28/16 <Hilary Darling - Last Filed: 07/28/16 11:06> Hospital Course - Hospital Course Hospital Course: She did have an elevated WBC of 36,000 on admission which is now normal at 7, 000. Also because of the infiltrate on chest xray a mass couldn't be excluded so she had CT chest which revealed an infiltrate likely pneumonia but mass couldn't be excluded and recommended follow up. Clinically she has improved and repeat chest xray revealed resolving infiltrate. Diagnosis - Discharge Diagnosis (1) Drug abuse Status: Acute (2) Pneumonia Status: Acute (3) Radicular pain of right upper extremity Status: Acute Discharge Plan - Discharge Data Condition at Discharge: Stable Discharge Diet: advance to your usual diet Activity: resume usual activities as tolerated Hygiene: no restrictions Contact your physician if you experience:: fever over 101, Shortness of breath - Forms/Instructions Additional Discharge Instructions: follow up with PCP in 5-7 days Exam - Constitutional General appearance: no acute distress - Head Head exam: Present: normocephalic - Eye Eye exam: Present: EOMI Pupils: Present: LANE - ENT ENT exam: Present: normal exam - Respiratory Respiratory exam: Present: clear to auscultation bilaterally - Cardiovascular Cardiovascular exam: Present: regular rate and rhythm - GI/Abdominal GI/Abdominal exam: Present: normal bowel sounds, soft - Extremities Exam Extremities exam: Present: full ROM - Neurological Exam Neurological exam: Present: alert, oriented X3, CN II-XII intact - Psychiatric Psychiatric exam: Present: depressed - Skin Skin exam: Present: warm, intact
--- NOTE | 2016-07-28 10:28 | Pulmonology Progress Note ---
Pulmonary - PN: Subj Interval history: Patient has been discharged. I will sign off. Exam (Progress Note) - Constitutional Vitals: Period Temp Pulse Resp BP Sys/Graham Pulse Ox Last 24 Hr 96.9 F-99.7 F 75-96 16-20 96-120/58-67 90-95 Results - Labs CBC & BMP: 07/28/16 03:35 07/26/16 03:01
[2016-07-28 12:14] VITALS: BP 106/70
[2016-07-28] MEDS: AZITHROMYCIN INJ 500 MG in SODIUM CHLORIDE 0.9% 250 ML IV SCH (12:28)
== END 2016-07-28 12:39 | disposition home or self-care (01) | DRG 178 ==
LOC: N.ED 00:25 → SUATTDRO 04:07 → N.EDINP 04:07 → N.TELES 04:31
PROVIDERS: ADMIT Internal Medicine; ATTEND Internal Medicine

== ENCOUNTER 2019-08-29 20:04 | Inpatient (IN) ==
[2019-08-29] MEDS ORDERED: [UNRECOGNIZED DRUG - OTHER] ONE (20:39)
[2019-08-29] MEDS ORDERED: VANCOMYCIN INJ 1,000 MG in SODIUM CHLORIDE 0.9% 250 ML IV STA (20:48)
[2019-08-29] MEDS ORDERED: KETOROLAC 30 MG/1 ML VIAL IV STA (20:48)
[2019-08-29 21:10] LABS: Apearance,Urine CLOUDY (Clear); Bilirubin,Urine Negative (Negative); Blood, Urine Small mg/dL (Negative); Glucose,Urine (UA) Negative (Negative); Ketones,Urine Negative (Negative); Mucus,Urine Many /LPF (Occasional); Nitrite,Urine Positive (Negative); Protein,Urine Negative; RBC,Urine 22 /HPF (0-4); Urine Color Yellow (Yellow); Urine Specific Gravity 1.014 (1.001-1.035); Urine Urobilinogen < 2.0 EU/DL (0.2-1.0); WBC,Urine 156 /HPF (0-6)
[2019-08-29] MEDS ORDERED: VANCOMYCIN 1,000 MG VIAL ONE (21:10)
[2019-08-29] MEDS ORDERED: KETOROLAC 30 MG/1 ML VIAL ONE (21:10)
[2019-08-29 21:16] LABS: Basophils % 0.3 % (0.0-0.8); Eosinophils # 0.1 10*3/uL (0.0-0.87); Eosinophils % 0.9 % (0.00-10.9); Hematocrit 42.5 VOL% (35.7-47.0); Hemoglobin 13.5 GM/DL (12.0-16.0); Immature Granulocytes % 0.5 %; Immature Granulocytes Absolute 0.07 #; Lymphocytes # 3.9 10*3/uL (1.4-4.0); Lymphocytes % 25.5 % (21.3-54.2); Mean Corpuscular HGB Conc 31.8 GM/DL (32-36); Mean Corpuscular Volume 90.8 FL (87-102); Mean Platelet Volume 9.1 FL (9.6-12.0); Monocytes % 5.2 % (1.7-12.7); Neutrophils % 67.6 % (38.7-73.9); Platelet Count 367 T/CUMM (130-400); Red Blood Count 4.68 MC/CUMM (3.8-5.5); White Blood Count 15.3 T/CUMM (4-12)
[2019-08-29 21:30] LABS: Barbiturates Screen,Urine Negative (Negative); Benzodiazepines Screen,Urine Negative (Negative); Cannabinoid Screen,Urine Negative (Negative); Opiate Screen,Urine Negative (Negative); Phencyclidine Screen,Urine Negative (Negative)
[2019-08-29 21:39] LABS: Alanine Aminotransferase 30 U/L (13-56); Albumin 3.7 G/DL (3.4-5.0); Alkaline Phosphatase 129 U/L (45-117); Aspartate Amino Transferase 13 U/L (0-37); Bilirubin,Total < 0.39 MG/DL (0.2-1.0); Blood Urea Nitrogen 7 MG/DL (7-18); Calcium 9.2 MG/DL (8.5-10.1); Estimated Glom Filtration Rate 76 ML/MIN; Glucose 118 MG/DL (74-106); Total Protein 8.2 G/DL (6.4-8.3)
[2019-08-29] MEDS ORDERED: SODIUM CHLORIDE 0.9% 1,000 ML IV STA (22:35)
[2019-08-29] MEDS ORDERED: ACETAMINOPHEN 325 MG TABLET PO PRN (23:12)
[2019-08-29] MEDS ORDERED: hydrALAZINE 20 MG/1 ML VIAL IV PRN (23:12)
[2019-08-29] MEDS ORDERED: ZALEPLON 5 MG CAPSULE PO PRN (23:12)
[2019-08-29] MEDS ORDERED: guaiFENesin/DM ER 600-30 MG TABLET PO PRN (23:12)
[2019-08-29] MEDS ORDERED: SODIUM CHLORIDE 0.9% 1,000 ML IV ONE (23:15)
[2019-08-29] MEDS ORDERED: CLINDAMYCIN INJ 50 ML IV ONE (23:55)
[2019-08-30] MEDS ORDERED: CLINDAMYCIN INJ 600 MG in PREMIX 1 EACH IV SCH
[2019-08-30] MEDS: DOCUSATE SODIUM 100 MG CAPSULE PO PRN (00:44)
[2019-08-30] MEDS: POTASSIUM CHLORIDE 20 MEQ TABLET PO SCH ×3 (00:45→21:00)
[2019-08-30 06:21] LABS: Basophils % 0.2 % (0.0-0.8); Eosinophils # 0.2 10*3/uL (0.0-0.87); Eosinophils % 1.6 % (0.00-10.9); Hematocrit 34.9 VOL% (35.7-47.0); Hemoglobin 11.3 GM/DL (12.0-16.0); Immature Granulocytes % 0.2 %; Immature Granulocytes Absolute 0.02 #; Lymphocytes # 2.8 10*3/uL (1.4-4.0); Lymphocytes % 27.9 % (21.3-54.2); Mean Corpuscular HGB Conc 32.4 GM/DL (32-36); Mean Corpuscular Volume 89.9 FL (87-102); Mean Platelet Volume 9.7 FL (9.6-12.0); Monocytes % 10.4 % (1.7-12.7); Neutrophils % 59.7 % (38.7-73.9); Platelet Count 265 T/CUMM (130-400); Red Blood Count 3.88 MC/CUMM (3.8-5.5); Red Cell Distribution Width 14.3 % (9.3-17.3)
[2019-08-30 06:41] LABS: Alanine Aminotransferase 23 U/L (13-56); Albumin 2.9 G/DL (3.4-5.0); Alkaline Phosphatase 102 U/L (45-117); Aspartate Amino Transferase 10 U/L (0-37); Bilirubin,Total < 0.39 MG/DL (0.2-1.0); Blood Urea Nitrogen 8 MG/DL (7-18); Calcium 8.4 MG/DL (8.5-10.1); Estimated Glom Filtration Rate 90 ML/MIN; Glucose 88 MG/DL (74-106); Osmolality,Calculated 275.4 MOS/KG (273-304); Total Protein 6.4 G/DL (6.4-8.3)
[2019-08-30] MEDS: ONDANSETRON 4 MG/2 ML VIAL IV PRN (07:35)
[2019-08-30] MEDS: LEVOFLOXACIN INJ 750 MG in PREMIX 1 EACH IV SCH (07:35)
[2019-08-30] MEDS: SODIUM CHLORIDE 0.9% 1,000 ML IV SCH ×3 (07:36→18:28)
[2019-08-30] MEDS ORDERED: KETOROLAC 30 MG/1 ML VIAL IV PRN (09:42)
[2019-08-30] MEDS ORDERED: MORPHINE 4 MG/1 ML VIAL IV PRN ×2 (09:43→12:12)
[2019-08-30] MEDS: VANCOMYCIN INJ 1,000 MG in SODIUM CHLORIDE 0.9% 250 ML IV SCH ×2 (09:57→20:59)
[2019-08-30] MEDS: PANTOPRAZOLE 40 MG TABLET PO SCH (09:58)
[2019-08-30] MEDS ORDERED: MORPHINE 4 MG/1 ML VIAL IV ONE (12:22)
[2019-08-30] MEDS: MUPIROCIN 2% OINT 22 GM TUBE TOP SCH ×3 (13:50→21:01)
[2019-08-30] MEDS: methylPREDNISolone SOD SUC 40 MG/1 ML VIAL IV SCH ×2 (13:55→18:27)
[2019-08-30] MEDS: ENOXAPARIN 40 MG/0.4 ML SYRINGE SUBCUT SCH (18:31)
[2019-08-30] MEDS ORDERED: diphenhydrAMINE 50 MG/1 ML VIAL IV ONE (21:53)
[2019-08-31] MEDS: methylPREDNISolone SOD SUC 40 MG/1 ML VIAL IV SCH ×4 (00:30→19:20)
[2019-08-31] MEDS: SODIUM CHLORIDE 0.9% 1,000 ML IV SCH ×3 (04:04→21:01)
[2019-08-31] MEDS ORDERED: diphenhydrAMINE 50 MG/1 ML VIAL IV PRN (06:09)
[2019-08-31 06:19] LABS: Basophils % 0.1 % (0.0-0.8); Hematocrit 36.1 VOL% (35.7-47.0); Hemoglobin 11.3 GM/DL (12.0-16.0); Immature Granulocytes Absolute 0.14 #; Lymphocytes # 0.9 10*3/uL (1.4-4.0); Lymphocytes % 6.6 % (21.3-54.2); Mean Corpuscular HGB Conc 31.3 GM/DL (32-36); Mean Corpuscular Volume 92.1 FL (87-102); Mean Platelet Volume 9.7 FL (9.6-12.0); Monocytes % 0.8 % (1.7-12.7); Neutrophils % 91.5 % (38.7-73.9); Platelet Count 306 T/CUMM (130-400); Red Blood Count 3.92 MC/CUMM (3.8-5.5); Red Cell Distribution Width 13.9 % (9.3-17.3); White Blood Count 14.1 T/CUMM (4-12)
[2019-08-31 06:44] LABS: Hypochromasia Slight; Lymphocytes 7 % (20-55); Ovalocytes Slight; Platelet Estimate Adequate; Segmented Neutrophils 93 % (50-85); Total Cells Counted 100
[2019-08-31 06:59] LABS: Calcium 8.8 MG/DL (8.5-10.1); Osmolality,Calculated 277.5 MOS/KG (273-304)
[2019-08-31 07:42] LABS: HIV Antigen/Antibody Result Nonreactive (Nonreactive); Hepatitis B Core IgM Quant 0.14 Index; Hepatitis B Surface Ag Quant < 0.10 Index; Hepatitis B Surface Ag Result Negative (Negative); Hepatitis C Virus Ab Quant < 0.02 Index; Hepatitis C Virus Ab Result Negative (Negative)
[2019-08-31] MEDS ORDERED: ALPRAZolam 0.5 MG TABLET PO ONE (08:26)
[2019-08-31] MEDS: VANCOMYCIN INJ 1,000 MG in SODIUM CHLORIDE 0.9% 250 ML IV SCH (11:13)
[2019-08-31] MEDS: PANTOPRAZOLE 40 MG TABLET PO SCH (11:18)
[2019-08-31] MEDS: POTASSIUM CHLORIDE 20 MEQ TABLET PO SCH ×2 (11:18→20:34)
[2019-08-31] MEDS: LEVOFLOXACIN INJ 750 MG in PREMIX 1 EACH IV SCH (11:18)
[2019-08-31] MEDS: MUPIROCIN 2% OINT 22 GM TUBE TOP SCH ×3 (11:19→20:36)
[2019-08-31] MEDS: DOCUSATE SODIUM 100 MG CAPSULE PO PRN (15:16)
[2019-08-31] MEDS: ENOXAPARIN 40 MG/0.4 ML SYRINGE SUBCUT SCH (19:24)
[2019-09-01] MEDS: VANCOMYCIN INJ 1,000 MG in SODIUM CHLORIDE 0.9% 250 ML IV SCH ×4 (00:28→15:57)
[2019-09-01 07:14] LABS: Basophils % 0.1 % (0.0-0.8); Hematocrit 32.8 VOL% (35.7-47.0); Hemoglobin 10.3 GM/DL (12.0-16.0); Immature Granulocytes Absolute 0.27 #; Lymphocytes # 1.7 10*3/uL (1.4-4.0); Lymphocytes % 6.6 % (21.3-54.2); Mean Corpuscular HGB Conc 31.4 GM/DL (32-36); Mean Corpuscular Volume 92.1 FL (87-102); Mean Platelet Volume 9.8 FL (9.6-12.0); Monocytes % 4.6 % (1.7-12.7); Neutrophils % 87.7 % (38.7-73.9); Platelet Count 298 T/CUMM (130-400); Red Blood Count 3.56 MC/CUMM (3.8-5.5); Red Cell Distribution Width 14.1 % (9.3-17.3); White Blood Count 25.8 T/CUMM (4-12)
[2019-09-01 07:34] LABS: Calcium 8.5 MG/DL (8.5-10.1); Osmolality,Calculated 282.3 MOS/KG (273-304)
[2019-09-01 07:46] LABS: Hypochromasia 1+; Lymphocytes 9 % (20-55); Ovalocytes Slight; Platelet Estimate Adequate; Segmented Neutrophils 85 % (50-85); Total Cells Counted 100
[2019-09-01] MEDS ORDERED: BISACODYL 5 MG TABLET PO PRN (07:51)
[2019-09-01] MEDS ORDERED: MAGNESIUM CITRATE 300 ML BOTTLE PO PRN (08:00)
[2019-09-01] MEDS: MUPIROCIN 2% OINT 22 GM TUBE TOP SCH ×3 (09:33→21:09)
[2019-09-01] MEDS: POTASSIUM CHLORIDE 20 MEQ TABLET PO SCH ×2 (09:33→21:06)
[2019-09-01] MEDS: SODIUM CHLORIDE 0.9% 1,000 ML IV SCH ×3 (09:33→15:57)
[2019-09-01] MEDS: PANTOPRAZOLE 40 MG TABLET PO SCH (09:34)
[2019-09-01] MEDS: LEVOFLOXACIN INJ 750 MG in PREMIX 1 EACH IV SCH (09:34)
[2019-09-01] MEDS: DOCUSATE SODIUM 100 MG CAPSULE PO PRN (09:34)
[2019-09-01] MEDS: methylPREDNISolone SOD SUC 40 MG/1 ML VIAL IV SCH ×2 (09:36→21:05)
[2019-09-01] MEDS: CLINDAMYCIN 300 MG CAPSULE PO SCH (18:06)
[2019-09-01] MEDS: ENOXAPARIN 40 MG/0.4 ML SYRINGE SUBCUT SCH (18:07)
[2019-09-02] MEDS: CLINDAMYCIN 300 MG CAPSULE PO SCH ×3 (00:18→14:02)
[2019-09-02] MEDS: SODIUM CHLORIDE 0.9% 1,000 ML IV SCH (00:19)
[2019-09-02 05:31] LABS: Basophils % 0.2 % (0.0-0.8); Hematocrit 35.2 VOL% (35.7-47.0); Hemoglobin 11.2 GM/DL (12.0-16.0); Immature Granulocytes % 1.5 %; Immature Granulocytes Absolute 0.25 #; Lymphocytes % 11.6 % (21.3-54.2); Mean Corpuscular HGB Conc 31.8 GM/DL (32-36); Mean Platelet Volume 9.6 FL (9.6-12.0); Monocytes % 5.1 % (1.7-12.7); Neutrophils % 81.6 % (38.7-73.9); Platelet Count 354 T/CUMM (130-400); Red Blood Count 3.87 MC/CUMM (3.8-5.5); Red Cell Distribution Width 14.5 % (9.3-17.3); White Blood Count 16.8 T/CUMM (4-12)
[2019-09-02 05:49] LABS: Calcium 8.6 MG/DL (8.5-10.1); Osmolality,Calculated 275.5 MOS/KG (273-304)
[2019-09-02] MEDS: methylPREDNISolone SOD SUC 40 MG/1 ML VIAL IV SCH (06:18)
[2019-09-02] MEDS: ONDANSETRON 4 MG/2 ML VIAL IV PRN ×2 (08:56→14:01)
[2019-09-02] MEDS: POTASSIUM CHLORIDE 20 MEQ TABLET PO SCH (08:57)
[2019-09-02] MEDS: MUPIROCIN 2% OINT 22 GM TUBE TOP SCH ×2 (08:57→15:46)
[2019-09-02] MEDS: PANTOPRAZOLE 40 MG TABLET PO SCH (08:58)
[2019-09-02] MEDS ORDERED: LEVOFLOXACIN 500 MG TABLET PO SCH (09:00)
[2019-09-02 13:48] VITALS: BP 139/70
== END 2019-09-02 18:27 | disposition home or self-care (01) | DRG 580 ==
LOC: N.ED 20:04 → N.EDINP 23:12 → SUATTDRO 23:12 → N.5E 08-30 00:03
PROVIDERS: ADMIT Internal Medicine; ATTEND Internal Medicine